=== PATIENT | female | born 1940 | race Caucasian/White ===

== ENCOUNTER → 2018-01-01 10:28 | Outpatient (CLI) | payer MEDICARE, OTHER, SELFPAY ==
--- NOTE | 2018-01-01 10:30 | NM_ITS ---
CLINICAL: 77-year-old female with reported history of carcinoma of the breast and current complaint of left chest wall pain. WHOLE BODY 99m Tc MDP RADIONUCLIDE BONE SCINTIGRAPHY COMPARISON: Previous whole body bone scintigraphy study dated 07/09/2017 FINDINGS: Following the intravenous administration of 25.7 mCi of 99m Tc MDP, whole body bone images reveal: 1. Persistent minimally increased radiopharmaceutical concentration is noted in the left iliac wing. 2. An increase in tracer concentration is presently defined in the mid cervical spine posteriorly on the right, lower cervical spine posteriorly on the left, fourth lumbar vertebra posteriorly on the left, the anterior midline tibial compartment of the right knee, bilateral wrist articulations. 3. The remaining skeletal structures are scintigraphically unremarkable with normal-appearing renal images and urinary bladder activity identified. NM/Bone Scan Whole Body IMPRESSION: 1. The relatively unchanged increase in radiopharmaceutical concentration defined in the left iliac wing remains consistent with osteoblastic turnover attributed to skeletal metastatic disease. 2. Degenerative arthritis is currently expressed in the cervical and lumbar spine, right knee, right and left wrist articulations. 3. Overall compared to the previous whole body bone scintigraphy study dated 07/09/2017, there is no significant interval change. Electronically Signed: Miguel Kirk DO at 10:54 EST Tel , Service support ,
== END ==
PROVIDERS: Family Provider Internal Medicine; PCP Internal Medicine; Visit Provider Internal Medicine Medical Oncology
DX: C50.919 Malignant neoplasm of unspecified site of unspecified female breast (principal); C78.00 Secondary malignant neoplasm of unspecified lung
CPT/HCPCS: 78306

== ENCOUNTER → 2018-01-06 12:41 | Outpatient (CLI) | payer MEDICARE, OTHER, SELFPAY ==
--- NOTE | 2018-01-06 13:01 | CT_ITS ---
STUDY: CT ABDOMEN AND PELVIS WITH CONTRAST REASON FOR EXAM: Female, 77 years old. Breast cancer follow-up. Patient has metastatic breast cancer to bone. RADIATION DOSAGE (If Supplied By Facility): CTDIvol = ( 9.56 ) mGy, DLP = ( 603.95 ) mGycm TECHNIQUE: Transaxial images were obtained from the dome of the diaphragm to the symphysis pubis with oral contrast. 100 ml of Isovue 300 contrast was administered. Sagittal and coronal images were reconstructed. Individualized dose optimization techniques were used for this CT. COMPARISON: CT of the abdomen and pelvis dated July 11, 2017. FINDINGS: The visualized lung bases are unremarkable. The visualized portions of the heart are within normal limits. There is mild prominence of the intrahepatic biliary ducts. This may be the result of previous obstruction. This is unchanged since the previous study. The liver otherwise has a normal appearance. The gallbladder is not visualized, possibly related to cholecystectomy. There is dilatation of the common hepatic and common bile ducts with maximum transverse dimension of approximately 1.3 cm. Normal spleen. There is a small splenule located posterior and caudal to the spleen measuring 1.3 cm in size. There is diffuse atrophy of the pancreas. Normal bilateral adrenal glands. There is prominence of the right renal collecting system, unchanged since the previous CT. There is no evidence for hydroureter or radiopaque ureteral calculus. There are right-sided pelvic calcifications that are thought to be phleboliths. There is a small cyst arising from the upper pole of left kidney measuring approximately 8.1 mm in size. This is unchanged since the previous CT. There is no evidence for left-sided hydronephrosis, hydroureter or radiopaque ureteral calculus. There is abnormal thickening of the ruiz of the gastric antrum which measure up to 1.3 cm in greatest dimension. There is no evidence for dilated bowel, ascites or pneumoperitoneum. Small bowel has a grossly normal appearance. Contrast is visible throughout the colon without obvious abnormality. There is non-visualization of the appendix. Appears to be severe narrowing of the origin of the celiac axis. The abdominal aorta has a generally normal appearance. The superior mesenteric artery has a normal appearance. Normal inferior vena cava. Normal retroperitoneum. Normal urinary bladder. There is absence of the uterus consistent with a prior hysterectomy. Normal abdominal wall. There is a lytic process involving the anterior left-sided iliac bone. This is unchanged since the previous study. The bones appear generally osteopenic. The bones otherwise have generally normal appearance. CT/Abdomen/Pelvis WITH Contrast IMPRESSION: 1. Unchanged appearance to lytic metastasis to left iliac bone. 2. No CT evidence for additional metastasis. Electronically Signed: Karin Estrada MD at 9:50 EST , Service support ,
--- NOTE | 2018-01-06 13:01 | CT_ITS ---
STUDY: CT CHEST WITH CONTRAST REASON FOR EXAM: Female, 77 years old. History of bilateral breast cancer with metastasis to bone. RADIATION DOSAGE (If Supplied By Facility): CTDIvol = ( 9.56 ) mGy, DLP = ( 603.95 ) mGycm TECHNIQUE: Transaxial imaging was performed following intravenous administration of 100ml ml of Isovue 300 contrast material. Multiplanar coronal and sagittal images were reformatted. Individualized dose optimization techniques were used for this CT. COMPARISON: CT of the chest dated July 11, 2017. FINDINGS: The patient has had a left-sided mastectomy. There is hyperinflation of the lungs consistent with chronic obstructive lung disease (COPD). There is a nodular area at the left lung apex. This was present on the previous CT. The nodule measures approximately 3.1 x 1 x 1.2 cm in size. The lungs otherwise appear to be clear. There is no demonstrated pleural abnormality. Normal heart and pericardium. There are enlarged nodes within the aorticopulmonary window measuring approximately 3 x 1.9 x 2.8 cm in size. This is unchanged since the previous CT. Normal hilar regions. There is prominence of the pulmonary hilar arteries without peripheral pulmonary vascular congestion. There is atherosclerotic calcification of the aortic arch with tortuosity and elongation of the aortic arch and descending thoracic aorta. Maximum transverse dimension of ascending thoracic aorta measures approximately 3.7 cm. There are no demonstrated pulmonary emboli. There is demineralization of the thoracic spine. There is no demonstrated abnormality of the visualized upper abdomen. CT/Chest WITH Contrast IMPRESSION: 1. Unchanged appearance to left apical nodule and mediastinal lymphadenopathy since previous CT. 2. No CT evidence for additional metastases. Electronically Signed: Karin Estrada MD at 9:08 EST , Service support ,
[2018-01-06 13:15] LABS: Absolute Lymphocyte Count 0.92 X10^3/ul (0.83-4.51); Absolute Neutrophil Count 2.7 X10^3/uL (2.0-7.7); Basophil# 0.02 X10^3/uL; Basophil% 0.5 % (0-1); Eosinophil# 0.11 X10^3/uL; Eosinophils% 2.6 % (0-5); Hematocrit 35.1 % (37-47); Hemoglobin 11.7 g/dl (12.0-15.0); Lymphocyte # 0.92 X10^3/ul (4.0); Lymphocyte % 21.3 % (19-41); Mean Corp Hgb Conc 33.3 g/gl (32-36); Mean Corpuscular Hgb 30.5 pg (27.0-32.0); Mean Corpuscular Volume 91.4 fL (81-99); Mean Platelet Vol. 10.2 fl (6.2-12.0); Monocyte# 0.51 X10^3/uL; Monocyte% 11.8 % (0-10); Neutrophil # 2.74 X10^3/uL (2.7-7.7); Neutrophil % 63.6 % (47-70); Platelet Count 154 K/mm3 (150-450); RBC Distribution Width CV 13.8 % (11.6-14.6); RBC Distribution Width SD 45.6 fl (35.1-43.9); Red Blood Count 3.84 M/mm3 (4.2-5.4); White Blood Count 4.3 K/mm3 (4.4-11.0)
[2018-01-06 13:16] LABS: POSITIVE COUNT NO; POSITIVE DIFFERENTIAL NO; POSITIVE MORPHOLOGY NO
[2018-01-06 13:38] LABS: ALB/GLOB Ratio 1.1 RATIO (0.9-2.4); AST(SGOT) 22 U/L (15-37); Alanine Aminotransfer ALT/SGPT 23 U/L (13-56); Albumin, Serum 3.8 g/dL (3.2-5.0); Alkaline Phosphatase 63 U/L (45-117); Anion Gap 7 (5-15); BUN 17 mg/dL (7-18); BUN/Creat Ratio 17.9 RATIO (10-20); Calcium,Total 8.7 mg/dL (8.5-10.1); Chloride 102 mmol/L (98-107); Creatinine, Serum 0.95 mg/dL (0.55-1.02); EST Glomerular Filtration Rate 60 mL/min (>60); Est Glom Filt Rate - Afr Amer 73 mL/min (>60); Globulin 3.4 g/dL (2.2-4.2); Glucose 93 mg/dL (74-106); Potassium 4.6 mmol/L (3.5-5.1); Protein, Total 7.2 g/dL (6.4-8.2); Sodium Level 136 mmol/L (136-145)
== END ==
PROVIDERS: Family Provider Internal Medicine; PCP Internal Medicine; Visit Provider Internal Medicine Medical Oncology
DX: C50.919 Malignant neoplasm of unspecified site of unspecified female breast (principal); C78.00 Secondary malignant neoplasm of unspecified lung
CPT/HCPCS: 36415; 71260; 74177; 80053; 85025; Q9967

== ENCOUNTER → 2018-01-13 12:23 | Outpatient (CLI) | payer MEDICARE, OTHER, SELFPAY ==
--- NOTE | 2018-01-13 12:29 | US_ITS ---
STUDY: THYROID ULTRASOUND REASON FOR EXAM: Female, 77 years old. History of thyroid nodules. TECHNIQUE: Ultrasound evaluation of the thyroid was performed with real-time and static franz-scale imaging. COMPARISON: Comparison is made with prior examination dated December 06, 2016. FINDINGS: RIGHT LOBE: The right lobe of the thyroid gland is slightly enlarged and measures 5.0 cm x 1.1 cm x 1.6 cm. There is a homogeneous echotexture. Stable appearance of the 3 hypoechoic solid nodules in the right lobe. The largest is in the midportion and measures 8 mm x 8 mm x 7 mm. This is unchanged. LEFT LOBE: The left lobe of the thyroid gland measures 4.7 cm x 1.4 cm x 1.5 cm. There is a homogeneous echotexture. Once again, 6 nodules are seen. The largest is a hypoechoic solid nodule in the upper pole. This measures 1.5 cm x 1.0 cm x 0.5 cm. ISTHMUS: The isthmus measures 2.0 mm. There is a 6 mm x 2 mm right 3 mm lymph node lateral to the right lobe of the thyroid gland. US/Thyroid IMPRESSION: Multiple bilateral thyroid nodules. There has been essentially no change. Electronically Signed: Severiano Davies MD at 8:05 EST Tel [phone], Service support ,
== END ==
PROVIDERS: Family Provider Internal Medicine; PCP Internal Medicine; Visit Provider Nurse Practitioner Adult Health
DX: E04.2 Nontoxic multinodular goiter (principal)
CPT/HCPCS: 76536

== ENCOUNTER → 2018-04-17 13:52 | Outpatient (CLI) | payer MEDICARE, OTHER, SELFPAY ==
--- NOTE | 2018-04-17 13:52 | DT_ITS ---
This patient was seen during an EMR downtime April 14, 2018 - April 21, 2018. This patient may have a combination of paper and electronic documentation or all paper documentation. All documentation is viewable within the e-chart portion of [facility] for each patient visit.
--- NOTE | 2018-04-17 14:09 | CT_ITS ---
STUDY: CT ABDOMEN AND PELVIS WITHOUT CONTRAST REASON FOR EXAM: Female, 77 years old. Breast cancer follow-up RADIATION DOSAGE (If Supplied By Facility): CTDIvol = ( 7.16 ) mGy, DLP = ( 556.67 ) mGycm TECHNIQUE: Transaxial images were obtained from the lower chest to the upper thighs with oral contrast, and without intravenous contrast. Sagittal and coronal images were reconstructed. Individualized dose optimization techniques were used for this CT. COMPARISON: January 06, 2018 FINDINGS: The lower chest is dictated separately. Prominence of the intrahepatic biliary ducts is stable. The gallbladder is not visualized, likely from prior cholecystectomy. The common bile duct is prominent which is a stable appearance. The spleen is unremarkable. The pancreas is unremarkable. The adrenal glands are unremarkable. The right kidney is unremarkable. There is no dilatation of the collecting system in the right kidney. The left kidney is unremarkable. There is no dilatation of the collecting system in the left kidney. There is a small hiatal hernia. There is mild wall thickening in the stomach. The small bowel is unremarkable. The colon is unremarkable. There is non-visualization of the appendix. The aorta and branch vessels are unremarkable. The IVC is unremarkable. The retroperitoneum is unremarkable. There is no free fluid in the abdomen. The urinary bladder is unremarkable. There is absence of the uterus consistent with a prior hysterectomy. There are no abnormal masses in the adnexal regions. The soft tissues are unremarkable. There are mild degenerative changes in the visualized spine. There is stable trace spondylolisthesis of L3 on L4. There is a stable lesion in the left iliac wing. CT/Abdomen/Pelvis without Cont IMPRESSION: There is a stable lesion in the left iliac wing, possible metastatic lesion. No new bone masses are seen. No masses are seen in the liver, spleen or adrenal glands. There is no significant lymphadenopathy. There is wall thickening in the stomach which is nonspecific. This can be seen with a gastritis. This can be seen with metastatic disease from the breast but is very uncommon. Electronically Signed: Isabella Singh MD at 11:51 EDT Tel Direct: [phone], Service support ,
--- NOTE | 2018-04-17 14:09 | CT_ITS ---
STUDY: CT CHEST WITHOUT CONTRAST REASON FOR EXAM: Female, 77 years old. Breast cancer follow-up RADIATION DOSAGE (If Supplied By Facility): CTDIvol = ( 7.16 ) mGy, DLP = ( 556.67 ) mGycm TECHNIQUE: Transaxial imaging of the chest was performed without intravenous contrast material. Sagittal and coronal reconstructions were performed. Individualized dose optimization techniques were used for this CT. COMPARISON: January 06, 2018 FINDINGS: There is stable scarring in the right apex and periphery of the right upper lobe. There is minimal atelectasis and scarring in the right lung base. There is a stable 3 mm opacity in the anterior segment of the right upper lobe on series 4 image 39. There is stable scarring in the left apex anteriorly extending into the anterior segment of the left upper lobe. There is no demonstrated pleural abnormality. The heart is normal in size. A prevascular lymph node is stable measuring about 2 cm in largest diameter. Smaller lymph nodes are again seen scattered in the mediastinum. The hilar regions are unremarkable allowing for lack of contrast in the vessels. The pulmonary arteries are unremarkable. There are minimal vascular calcifications in the thoracic aorta. The ascending aorta measures up to 4 cm in diameter. There are minimal degenerative changes in the visualized spine. The patient has had prior left mastectomy. The upper abdomen is dictated separately. CT/Chest without Contrast IMPRESSION: There are stable chronic changes in the lungs. There is a stable 3 mm opacity in the anterior segment of the right upper lobe. There are no new lung nodules. There are stable lymph nodes in the mediastinum, with the largest measuring about 2 cm in the prevascular space. The ascending aorta measures up to 4 cm in diameter. Electronically Signed: Isabella Singh MD at 12:00 EDT Tel Direct: [phone], Service support ,
[2018-04-21 20:43] LABS: ALB/GLOB Ratio 1.1 RATIO (0.9-2.4); AST(SGOT) 28 U/L (15-37); Alanine Aminotransfer ALT/SGPT 28 U/L (13-56); Albumin, Serum 3.9 g/dL (3.2-5.0); Alkaline Phosphatase 59 U/L (45-117); BUN 21 mg/dL (7-18); BUN/Creat Ratio 17.8 RATIO (10-20); Calcium,Total 8.7 mg/dL (8.5-10.1); Creatinine, Serum 1.18 mg/dL (0.55-1.02); EST Glomerular Filtration Rate 47 mL/min (>60); Est Glom Filt Rate - Afr Amer 57 mL/min (>60); Globulin 3.5 g/dL (2.2-4.2); Glucose 83 mg/dL (74-106); Protein, Total 7.4 g/dL (6.4-8.2)
[2018-04-21 20:44] LABS: Anion Gap 9 (5-15); Chloride 103 mmol/L (98-107); Potassium 4.7 mmol/L (3.5-5.1); Sodium Level 138 mmol/L (136-145)
[2018-04-21 20:45] LABS: Hemoglobin 11.5 g/dl (12.0-15.0); Red Blood Count 3.81 M/mm3 (4.2-5.4); White Blood Count 4.2 K/mm3 (4.4-11.0)
[2018-04-21 20:46] LABS: Absolute Neutrophil Count 2.8 X10^3/uL (2.0-7.7); Basophil# 0.04 X10^3/uL; Eosinophil# 0.06 X10^3/uL; Eosinophils% 1.4 % (0-5); Hematocrit 34.9 % (37-47); Lymphocyte % 21.5 % (19-41); Mean Corpuscular Hgb 30.2 pg (27.0-32.0); Mean Corpuscular Volume 91.6 fL (81-99); Mean Platelet Vol. 10.6 fl (6.2-12.0); Monocyte# 0.42 X10^3/uL; Neutrophil # 2.76 X10^3/uL (2.7-7.7); Neutrophil % 66.1 % (47-70); POSITIVE COUNT NO; POSITIVE DIFFERENTIAL NO; POSITIVE MORPHOLOGY NO; Platelet Count 154 K/mm3 (150-450); RBC Distribution Width CV 13.6 % (11.6-14.6); RBC Distribution Width SD 45.4 fl (35.1-43.9)
== END ==
PROVIDERS: Family Provider Internal Medicine; PCP Internal Medicine; Visit Provider Internal Medicine Medical Oncology
DX: C50.912 Malignant neoplasm of unspecified site of left female breast (principal); C78.00 Secondary malignant neoplasm of unspecified lung
CPT/HCPCS: 36415; 71250; 74176; 80053; 85025

== ENCOUNTER → 2018-09-16 13:46 | Outpatient (CLI) | payer MEDICARE, OTHER, SELFPAY ==
--- NOTE | 2018-09-16 13:50 | CT_ITS ---
STUDY: CT ABDOMEN AND PELVIS WITH CONTRAST REASON FOR EXAM: Female, 78 years old. Breast cancer with bone metastases RADIATION DOSAGE (If Supplied By Facility): CTDIvol = ( 10.32 ) mGy, DLP = ( 577.28 ) mGycm TECHNIQUE: Transaxial images were obtained from the dome of the diaphragm to the symphysis pubis without oral contrast. 100 ml of Isovue 300 contrast was administered. Sagittal and coronal images were reconstructed. Individualized dose optimization techniques were used for this CT. COMPARISON: None. FINDINGS: The lung bases are clear. There is a left breast prosthesis There is previous cholecystectomy with mildly dilated intrahepatic biliary radicles. There is a unremarkable lumbar duct with a diameter of 1.3 cm. A dilated proximal pancreatic duct is also noted. A lesion in the ampulla of Vater is not demonstrable. The spleen is normal. The pancreas is normal. Both adrenals are normal. Bilateral extrarenal pelves with benign left renal cysts The stomach is normal. There is no bowel distention, acute appendicitis or diverticulitis. No constricting lesions are seen in large bowel. The abdominal wall is intact with no hernias. There is no ascites or any free intraperitoneal air. No indication of epiploic appendagitis The vascular structures in the retroperitoneum are normal. There is no retrocrural, retroperitoneal or mesenteric adenopathy. A stable abnormal density in the left iliac bone. Looks benign. No similar findings are seen in the rest of the skeletal system This has not changed since the last examination of April 17, 2018 The urinary bladder is normal.--The uterus is not seen. There is no inguinal or pelvic adenopathy. There is no inguinal hernia. CT/Abdomen/Pelvis WITH Contrast IMPRESSION: Previous cholecystectomy and mildly dilated intrahepatic biliary radicles and a prominent common bile duct. No lesion however is seen at the level of the ampulla of Vater. A new focal increased density in the left iliac bone. This has not changed since last study. No acute appendicitis or diverticulitis Electronically Signed: Marcos Cobos MD at 7:25 EST Tel , Service support ,
--- NOTE | 2018-09-16 14:08 | CT_ITS ---
STUDY: CT CHEST WITH CONTRAST REASON FOR EXAM: Female, 78 years old. Metastatic breast cancer. RADIATION DOSAGE (If Supplied By Facility): CTDIvol = ( 10.32 ) mGy, DLP = ( 577.28 ) mGycm TECHNIQUE: Transaxial imaging was performed following intravenous administration of 100 ml of Isovue 300 contrast material. Individualized dose optimization techniques were used for this CT. COMPARISON: 01/06/2018, 04/17/2018.. FINDINGS: There has been left mastectomy. Again seen is hyperexpansion of the lungs consistent with COPD. Stable irregular somewhat linear areas of density across the left apex. The findings are most consistent with scarring and have not changed. Stable 3 mm nodule in the anterior left apex, image 26. Stable 3 mm pleural-based nodule in the left upper lobe, axial image 41. Very slight increased pulmonary density in the posterior left lung base not present previously and most likely representing some subsegmental atelectasis. No effusions. Stable left prevascular adenopathy with overall greatest dimension of 3.1 cm anterior to the left main pulmonary artery, on axial image 48. No definite hilar adenopathy on either side. Stable mild to moderate ectasia of the ascending aorta. Mild cardiomegaly. Limited views of the upper abdomen show no gross acute abnormality. Skeletal structures are within normal limits-no evidence for metastatic disease. CT/Chest WITH Contrast IMPRESSION: No significant changes. Irregular linear densities of the left apex suggests scarring. Stable left mediastinal adenopathy. Electronically Signed: Yony Horan MD at 21:38 EST , Service support ,
== END ==
PROVIDERS: Family Provider Internal Medicine; PCP Internal Medicine; Referring Provider Internal Medicine Medical Oncology; Visit Provider Internal Medicine Medical Oncology
DX: C50.912 Malignant neoplasm of unspecified site of left female breast (principal); C79.51 Secondary malignant neoplasm of bone; C78.00 Secondary malignant neoplasm of unspecified lung
CPT/HCPCS: 71260; 74177; Q9967

== ENCOUNTER → 2018-09-18 12:27 | Outpatient (CLI) | payer MEDICARE, OTHER, SELFPAY ==
--- NOTE | 2018-09-18 12:28 | MRI_ITS ---
STUDY: MRI BRAIN WITH AND WITHOUT CONTRAST REASON FOR EXAM: Female, 78 years old. Fatigue. Nausea. History of breast carcinoma, lung carcinoma and bone metastases. TECHNIQUE: Standardized multiplanar fat and water weighted pulse sequences were obtained. 5 ml of Gadavist contrast material was administered intravenously for the contrast portion of the examination. COMPARISON: None. FINDINGS: No restricted diffusion to suspect acute or subacute ischemic infarct. Normal size of the ventricles and extra-axial spaces for the patient's age. Subcortical white matter T2 FLAIR hyperintensity foci in both cerebral hemispheres are chronic white matter ischemic changes. Normal bilateral basal ganglia. Normal thalami. There is no extra-axial fluid accumulation. Normal flow voids within the major intracranial circulation suggesting patency by spin echo criteria. Normal venous enhancement. There is no enhancing intra-axial or extra-axial abnormality. Normal sella turcica, pituitary gland, infundibular stalk, optic chiasm and hypothalamus. Normal tectal plate and pineal gland. Normal midbrain, bill and medulla. Normal cerebellum. Normal basal cisterns. Normal bilateral temporal bones. Normal bilateral internal auditory canals. No demonstrated orbital abnormality, within the constraints of a routine brain study. Normal visualized paranasal sinuses. Normal calvarium and skull base. Normal visualized soft tissue structures. Normal visualized upper cervical spine. MRI/Brain W/WO Contrast IMPRESSION: 1. No MRI evidence of acute or subacute ischemic infarct. 2. No MRI evidence of intracranial metastatic disease. 3. Chronic subcortical white matter ischemic changes in both cerebral hemispheres. Electronically Signed: Luis Duncan MD at 15:28 EST , Service support ,
== END ==
PROVIDERS: Family Provider Internal Medicine; PCP Internal Medicine; Referring Provider Internal Medicine Medical Oncology; Visit Provider Internal Medicine Medical Oncology
DX: C34.90 Malignant neoplasm of unspecified part of unspecified bronchus or lung (principal); C50.912 Malignant neoplasm of unspecified site of left female breast; C79.51 Secondary malignant neoplasm of bone; R11.0 Nausea; R53.83 Other fatigue
CPT/HCPCS: 70553; A9585

== ENCOUNTER → 2018-09-22 09:00 | Outpatient (CLI) | payer MEDICARE, OTHER, SELFPAY ==
--- NOTE | 2018-09-22 09:01 | NM_ITS ---
CLINICAL: 78-year-old female with reported history of carcinoma of the breast. WHOLE BODY 99m Tc MDP RADIONUCLIDE BONE SCINTIGRAPHY COMPARISON: Previous whole body bone scintigraphy study dated 01/01/2018 FINDINGS: Following the intravenous administration of 25.5 mCi of 99m Tc MDP, whole body bone images reveal: 1. Increased radiopharmaceutical concentration is redemonstrated in the mid cervical spine posteriorly on the left and right, fourth lumbar vertebra, right knee, left-right wrist articulations. 2. The remaining skeletal structures are scintigraphically unremarkable with normal-appearing renal images and urinary bladder activity identified. NM/Bone Scan Whole Body IMPRESSION: 1. The increase in radiopharmaceutical concentration persistently defined in the cervical and lumbar spine, right knee and wrist articulations bilaterally is most consistent with degenerative arthritis. 2. There is interim resolution of the previously defined left iliac bone scintigraphic abnormality. 3. Overall compared to the previous whole body bone scintigraphy study dated 01/01/2018, there is current absence of defined viable neoplastic disease. Electronically Signed: Miguel Kirk DO at 21:53 EST Tel , Service support ,
== END ==
PROVIDERS: Family Provider Internal Medicine; PCP Internal Medicine; Referring Provider Internal Medicine Medical Oncology; Visit Provider Internal Medicine Medical Oncology
DX: C34.90 Malignant neoplasm of unspecified part of unspecified bronchus or lung (principal); C50.912 Malignant neoplasm of unspecified site of left female breast; C79.51 Secondary malignant neoplasm of bone; R11.0 Nausea
CPT/HCPCS: 78306

== ENCOUNTER → 2019-02-04 13:37 | Outpatient (CLI) | payer MEDICARE, OTHER, SELFPAY ==
[2018-09-25 14:31] VITALS: BMI 18.3
--- NOTE | 2019-02-04 13:41 | US_ITS ---
STUDY: THYROID ULTRASOUND REASON FOR EXAM: Female, 78 years old. NONTOXIC MULTINODULAR GOITER TECHNIQUE: Ultrasound evaluation of the thyroid was performed with real-time and static franz-scale imaging. COMPARISON: January 13, 2018 FINDINGS: RIGHT LOBE: The right lobe of the thyroid gland measures 4.9 x 1.4 x 1.6 cm cm. There is a heterogeneous echotexture. There are 2 nodular foci associated with the mid and lower pole. One in the midpole measures 0.4 x 0.5 x 0.3 cm noted as generally hypoechoic in the periphery and hyperechoic centrally and the other in the lower pole measuring 0.7 x 0.7 x 0.8 cm noted as relatively homogeneously hyperechoic. These nodules have regular borders and there is perinodular vascularization.. LEFT LOBE: The left lobe of the thyroid gland measures 5 x 1.7 x 1.5 cm cm. There is a heterogeneous echotexture. There are 5 lesions seen noted from superior to inferior upper to lower pole with the following measurements there is a hypoechoic solid nodule in the upper pole measuring 1.3 x 1 x 0.6 cm. There is another lesion in the posterior mid to upper pole measuring 0.8 x 0.6 x 0.7 cm noted is slightly hyperechoic and solid. There is a lesion is seen laterally in the midpole measuring approximately 0.9 x 0.7 x 0.8 cm generally hyperechoic. Fourth lesion noted medially in the mid to lower thyroid gland measuring approximately 0.5 x 0.5 x 0.5 cm. It likely has calcification and is noted is hyperechoic with shadowing. This lesion is seen as complex with areas of shadowing calcification measuring approximately 1.3 x 1.3 x 0.8 cm. Margins do appear regular . Vascularization is predominantly seen. Nodular in association with these lesions. ISTHMUS: The isthmus measures 2 mm . The regional lymph nodes are normal. US/Thyroid IMPRESSION: Multinodular thyroid gland as described. Given differences in technique and attention to perceived nodular margins, the appearance iswithout significant change Electronically Signed: Darby Nuno MD at 14:45 EDT , Service support ,
== END ==
PROVIDERS: Family Provider Internal Medicine; PCP Internal Medicine; Referring Provider Nurse Practitioner Adult Health; Visit Provider Nurse Practitioner Adult Health
DX: E04.2 Nontoxic multinodular goiter (principal)
CPT/HCPCS: 76536

== ENCOUNTER → 2019-03-25 09:27 | Outpatient (CLI) | payer MEDICARE, OTHER, SELFPAY ==
[2019-03-19 13:38] VITALS: BMI 18.6
--- NOTE | 2019-03-25 09:29 | NM_ITS ---
CLINICAL: 78-year-old female with reported history of carcinoma of the breast. WHOLE BODY 99m Tc MDP RADIONUCLIDE BONE SCINTIGRAPHY COMPARISON: Whole body bone scintigraphy study dated 09/22/2018 FINDINGS: Following the intravenous administration of 25.5 mCi of 99m Tc MDP, whole body bone images reveal: 1. Increased radiopharmaceutical concentration is identified in the upper cervical spine posteriorly on the right, mid cervical spine posteriorly on the left-right, right and left wrist articulations, bilateral forefoot. 2. The remaining skeletal structures are scintigraphically unremarkable with normal-appearing renal images and urinary bladder activity identified. NM/Bone Scan Whole Body IMPRESSION: 1. The increase in radiopharmaceutical concentration defined in the cervical spine, bilateral wrists, right-left forefoot is commensurate with degenerative arthritis. 2. Overall compared to the previous whole body bone scintigraphy study dated 09/22/2018, there is no significant interval change. No current typical scintigraphic evidence of skeletal metastatic disease is defined on the current examination. Electronically Signed: Miguel Kirk DO at 11:16 EDT Tel , Service support ,
== END ==
PROVIDERS: Family Provider Internal Medicine; PCP Internal Medicine; Referring Provider Internal Medicine Medical Oncology; Visit Provider Internal Medicine Medical Oncology
DX: C50.912 Malignant neoplasm of unspecified site of left female breast (principal); C78.00 Secondary malignant neoplasm of unspecified lung
CPT/HCPCS: 78306

== ENCOUNTER → 2019-07-10 13:48 | Outpatient (CLI) | payer MEDICARE, OTHER, SELFPAY ==
[2019-07-01 12:07] VITALS: BMI 18.5
--- NOTE | 2019-07-10 13:50 | CT_ITS ---
STUDY: CT CHEST WITH CONTRAST REASON FOR EXAM: Female, 78 years old. Chronic shortness of breath history bilateral breast cancer RADIATION DOSAGE (If Supplied By Facility): CTDIvol = ( 12.05 ) mGy, DLP = ( 161.84 ) mGycm TECHNIQUE: Transaxial imaging was performed following intravenous administration of 100 IV Isovue 300. Individualized dose optimization techniques were used for this CT. COMPARISON: September 16, 2018 FINDINGS: There is interstitial thickening in the left lower lobe. There is also scarring in the left upper lobe. Tiny apical density measuring 3 mm in size There is no demonstrated pleural abnormality. Normal heart and pericardium. Superior mediastinal adenopathy within the prevascular space extending to the left suprahilar region measuring approximately 3.2 x 3 cm. Normal hilar regions. Normal enhanced pulmonary arteries. Atherosclerotic changes of the aorta without evidence for aneurysm. Postop changes status post left mastectomy Dorsal spine demonstrates mild spondylosis. There is no demonstrated abnormality of the visualized upper abdomen. The adenopathy has increased slightly in size since prior study. PET scan would be helpful for further assessment CT/Chest WITH Contrast IMPRESSION: Chronic interstitial changes in the left upper and lower lobes. Postop change status post left mastectomy Left suprahilar and superior mediastinal adenopathy which has increased slightly in size since prior study. PET scan recommended for further evaluation Electronically Signed: Armin Chauhan MD at 17:24 EDT , Service support ,
== END ==
PROVIDERS: Family Provider Internal Medicine; PCP Internal Medicine; Referring Provider Nurse Practitioner Family; Visit Provider Nurse Practitioner Family
DX: R06.02 Shortness of breath (principal)
CPT/HCPCS: 71260; Q9967

== ENCOUNTER → 2020-01-07 09:03 | Outpatient (CLI) | payer MEDICARE, OTHER, SELFPAY ==
[2020-01-04 09:55] VITALS: BMI 18.1
--- NOTE | 2020-01-07 09:04 | NM_ITS ---
CLINICAL: 79-year-old female with reported history of carcinoma of the breast. WHOLE BODY 99m Tc MDP RADIONUCLIDE BONE SCINTIGRAPHY COMPARISON: Previous whole body bone scintigraphy study dated 03/25/2019 FINDINGS: Following the intravenous administration of 25.7 mCi of 99m Tc MDP, whole body bone images reveal: 1. Increased radiopharmaceutical concentration is redefined in the mid cervical spine posteriorly on the left and right, bilateral wrist articulations, the anterior midline tibial compartment of the right knee. 2. The remaining skeletal structures are scintigraphically unremarkable with normal-appearing renal images and urinary bladder activity identified. NM/Bone Scan Whole Body IMPRESSION: 1. Increased tracer distribution currently visualized in the cervical spine, right knee right and left wrist articulations is commensurate with degenerative arthritis. 2. Overall compared to the previous whole body bone scintigraphy study dated 03/25/2019, there is no significant interval change. No current typical scintigraphic evidence of diffuse axial skeletal metastatic disease is apparent on the present examination. Electronically Signed: Miguel Kirk DO at 10:56 EST Tel , Service support ,
== END ==
PROVIDERS: PCP Internal Medicine; Referring Provider Nurse Practitioner Family; Visit Provider Nurse Practitioner Family
DX: C79.51 Secondary malignant neoplasm of bone (principal)
CPT/HCPCS: 78306

== ENCOUNTER → 2020-01-11 14:15 | Outpatient (CLI) | payer MEDICARE, OTHER, SELFPAY ==
[2020-01-04 09:55] VITALS: BMI 18.1
--- NOTE | 2020-01-11 14:16 | CT_ITS ---
STUDY: CT CHEST/THORAX WITH CONTRAST REASON FOR EXAM: Female, 79 years old. Left shoulder pain, back pain. Hx metastatic breast cancer, bilateral mastectomy, radiation to hip, chemotherapy. Prior cholecystectomy, hypertension, lung nodule removed. RADIATION DOSAGE (If Supplied By Facility): CTDIvol = ( 7.62 ) mGy, DLP = ( 531.25 ) mGycm TECHNIQUE: Transaxial imaging was performed following intravenous administration of IV 75mL Isovue-300. Multiplanar coronal and sagittal images were reformatted. Individualized dose optimization techniques were used for this CT. COMPARISON: CT chest with contrast July 10, 2019; whole body bone scan January 07, 2020 FINDINGS: There is a stable rim enhancing 1 cm nodule in the inferomedial left lobe of the thyroid gland and, just above it, a stable, rounded coarse 4 mm calcification. An elongated 1.4 x 0.6 x 1.05 cm rim-enhancing lesion in the superior margin of the left lobe of the thyroid is not fully included in the [id number]. Stable mild elevation of the posterior left diaphragm. There is stable irregular scarring along radiopaque suture line in the anterior apical left upper lobe. There is no demonstrated pleural abnormality. The heart is enlarged, although the appearance is likely augmented by a pectus excavatum deformity. Normal pericardium. A mass density arising out of the left margin of the aorta pulmonary window is 3.65 x 3.15 x 3.7 cm. Now seen anterior to this (series 2 image 37, series 601 image 76) is a 1 cm left anterior mediastinal lymph node, worrisome for metastatic disease. Normal hilar regions. Normal enhanced pulmonary arteries. There is some calcification in the anterior aortic valve annulus. The mid ascending aorta is 3.6 x 3.5 cm. The posterior thoracic aortic arch at the level of the calcified ligamentum arteriosum is 3.1 x 3.15 cm. The mid descending thoracic aorta is 2.25 x 2.3 cm. There is mild atherosclerotic plaquing with minor calcification of the descending thoracic aorta. There is some demineralization of the osseous structures. No discrete osseous lesion or acute fracture. Prior left mastectomy again noted. There is mild intrahepatic biliary ductal ectasia. Scanning does not go beyond the liver hilum, so a potential source of extra hepatic biliary disease is not included in the [id number]. CT/Chest WITH Contrast IMPRESSION: 1. Prior left mastectomy. 2. Stable scarring along a radiopaque suture line in the anterior left upper lobe. 3. Mild increased size of lobulated mass density arising from the left margin of the air component window. Anterior to this is a new 1 cm left anterior mediastinal lymph node. Both sites are worrisome for metastatic adenopathy. Correlation with PET scan may be useful. 4. There is some demineralization of the osseous structures. No discrete osseous lesion or fracture, however. 5. The enlarged appearance of the cardiac silhouette is likely augmented by pectus excavatum deformity. 6. Stable rim-enhancing nodules in the upper and lower poles of the left thyroid lobe. These are presumably components of the multinodular goiter identified on thyroid ultrasound February 04, 2019. 7. Stable mild intrahepatic biliary ductal ectasia. Electronically Signed: Bud Cohen MD at 15:38 EST , Service support ,
--- NOTE | 2020-01-11 14:16 | CT_ITS ---
STUDY: CT ABDOMEN AND PELVIS WITH CONTRAST REASON FOR EXAM: Female, 79 years old. Left shoulder and back pain, hx metastatic breast cancer, chemotherapy, radiation to hip, hypertension, cholecystectomy, LATIA/BSO. Prior bilateral mastectomy. RADIATION DOSAGE (If Supplied By Facility): CTDIvol = ( 7.62 ) mGy, DLP = ( 531.25 ) mGycm TECHNIQUE: Transaxial images were obtained from the dome of the diaphragm to the symphysis pubis without oral contrast. IV 75mL Isovue-300 was administered. Sagittal and coronal images were reconstructed. Individualized dose optimization techniques were used for this CT. COMPARISON: September 16, 2018 CT scan abdomen and pelvis FINDINGS: The visualized lung bases are unremarkable. There is mild cardiac enlargement. There is a left mastectomy asymmetry of the breast tissue. The liver is homogeneous. There is mild intra and extrahepatic ductal dilatation with a somewhat low lying tortuous appearance of the pancreatic ducts within the pancreas. There is a focus of fat surrounding the splenic confluence similar to the prior studies. There is non-visualization of the gallbladder, which may be secondary to either contraction or a prior cholecystectomy. Normal spleen. As mentioned above there is fatty infiltration around the splenic confluence which is in lump. This is underlying the body of the pancreas. Normal bilateral adrenal glands. There is mild right pelviectasis. This is similar to the prior study. There is mild left pelviectasis this is also unchanged since prior study. There is a minimal thick-walled appearance of the distal stomach image #38 For peristalsis. There mildly distended loops of small bowel. There is moderate stool in the colon. On image #71 axial views allowing for peristalsis is a suggestion of possible wall thickening of the colon There is bowel tortuosity. There is non-visualization of the appendix. The suprarenal abdominal aorta measures 1.9 x 2.4 cm. Normal inferior vena cava. Normal retroperitoneum. The bladder is distended. There is absence of the uterus consistent with a prior hysterectomy. Normal abdominal wall. The bones are mildly osteopenic. There is mild spondylosis. There is facet arthropathy. At L3-L4 L4-L5 there is a broad disc bulge disc space narrowing facet arthropathy with mild neural foramina narrowing no significant central stenosis. CT/Abdomen/Pelvis W IV Cont ONLY IMPRESSION: Mild stable bilateral renal pelviectasis. Persistent mild intra and extra hepatic duct dilatation stable since prior study Moderate constipation. Question peristalsis versus focal thickening of the ascending colon over a short segment which could potentially represent peristalsis versus possible atypia recommend follow-up colonoscopy. Minimal focal thickening of the distal stomach images numbered 48 axial views, could consider follow-up endoscopy or upper GI small bowel follow-through if appropriate. Status post hysterectomy. Degenerative change of the thoracolumbar spine. The bones are osteopenic without definitive focal lytic or sclerotic lesion. Electronically Signed: Manjula Verdin MD at 18:01 EST Tel , Service support ,
== END ==
PROVIDERS: PCP Internal Medicine; Referring Provider Nurse Practitioner Family; Visit Provider Nurse Practitioner Family
DX: C50.919 Malignant neoplasm of unspecified site of unspecified female breast (principal); C79.51 Secondary malignant neoplasm of bone; R94.5 Abnormal results of liver function studies; C78.00 Secondary malignant neoplasm of unspecified lung; R49.0 Dysphonia
CPT/HCPCS: 71260; 74177; Q9967; A4216

== ENCOUNTER → 2020-01-26 | Outpatient (CLI) | payer MEDICARE, OTHER, SELFPAY ==
[2020-01-21 13:13] VITALS: BMI 18.1
[2020-01-26] VITALS (10 sets, daily range): BP systolic 135–195; BP diastolic 57–76; PULSE 64–75; RESP 11–20; TEMP 36.6; O2SAT 95–100; BMI 18.1
--- NOTE | 2020-01-26 | IMM_PTH ---
PATIENT: ALEXEY SIDDIQUI LOC: CT U#:[id number] AGE/SX: 79/F ROOM: RE01/26/[address]: Dr. Albert Sy MD : 1940 BED: DIS: 01/26/2020 SPEC #: [id number] RECD: 01/27/20 14:47 STATUS: NEMESIO REQ #: [id number] LUIS: 01/26/20 00:[address]: Albert Sy DEPT: IMMUNOHISTOCHEMISTRY RECD BY: Cinthia Chu ENTERED: 01/27/20 14:49 SP TYPE: IMMUNO OTHR DR: Dr. Maycol Stevens MD Tissues: Lung, NOS Procedures: RCC (add) NAPSIN A (add) CK20 (add) CK5-6 (add) CK7 (add) CK8 (add) HEP PAR (add) HER2 [place] (add) MAMM (add) MI (add) TTF1 (add) GATA3 (add) P40 (add) ER (initial) PHYSICIAN & INSTITUTION [address] [address] SPECIMEN INFORMATION: Tissue Source: Left lung mass Clinical Info: Left lung mass Specimen Number: [id number] CPT code: 32840, 54057 x13 METHODOLOGY: Deparaffinized sections of prefer/formalin-fixed tissue or PAP/DQ stained slides are incubated with monoclonal/polyclonal antibodies/oligonucleotide probes. Localization is made via biotin free immunoperoxidase method. Appropriate controls are performed and reacted as expected. Results on target cell population are indicated in the following table: RESULTS: ANTIBODY / CLONE RESULT ER (6F11) positive MI (1E2) negative Her-2neu (CB11) negative (0) Mammaglobin (31A5) negative GATA3 (L50-823) positive CK7 (OV-TL12/30) positive CK8 (83epofW32) positive CK20 (KS20.8) negative TTF-1 (8G7G3/1) negative Napsin A (Rabbit Polyclonal) negative HepPar (OCh1E5) negative RCC (PN-15) negative CK5-6 (D5 & 1684) positive, rare cells P40 (BC28) positive, rare cells These tests were developed and their performance characteristics determined by [facility]. They may not have been cleared or approved by the U.S. Food and Drug Administration. The FDA has determined that such clearance or approval is not necessary. The above immunohistochemical/dualISH markers are ordered and reviewed by the Pathologist. INTERPRETATION: Left lung mass, CT-guided core biopsy: Metastatic non-small cell carcinoma consistent with breast primary. SJ:zoila 01/28/20 Case has been reviewed in consultation with Dr. Montemayor who concurs with the above diagnosis. IDC:AM
--- NOTE | 2020-01-26 08:51 | CT_ITS ---
PROCEDURE: CT GUIDED CORE NEEDLE BIOPSY OF A left upper lobe LUNG LESION INDICATION: Female, 79 years old. LT LUNG BIOPSY. Hx of breast cancer with bone mets. PHYSICIAN: Dr. Davies CONSENT: Written informed consent was obtained having explained the risks, benefits and alternatives in detail with the patient who accepted the risks and agreed to proceed. Laboratory review and clinical assessment was performed. CONSCIOUS SEDATION PROTOCOL: The Drugs used were: 2 mg Versed, IV., and 50 mcg Fentanyl, IV. The sedation time was: 15 minutes. Conscious sedation was started at 10:18 AM and terminated at 10:33 AM. The conscious sedation protocol was independently monitored. RADIATION DOSAGE (If Supplied By Facility): CTDIvol = ( 14 ) mGy, DLP = ( 258.75 ) mGycm Individualized dose optimization techniques were used for this CT. TECHNIQUE: The patient was placed in the supine position. A noncontrast CT was performed to localize the lesion in the medial left upper lobe . The skin surface was prepped and draped in a sterile fashion. 1% lidocaine was used for local anesthesia. Using CT guidance, a 20-gauge coaxial biopsy device was advanced to the periphery of the lesion. A total of 5 core specimens were obtained. The specimens were placed in a formalin solution. A post procedure CT demonstrated no adverse sequelae or pneumothorax. The patient tolerated the procedure well without adverse event. A negative biopsy does not exclude malignancy. Further imaging or clinical followup based on patient condition and degree of clinical suspicion for malignancy. Suggest rebiopsy, if biopsy results do not match with clinical scenario. CT/Biopsy/Inj or Needle Placement IMPRESSION: 1. CT directed core needle biopsy of the nodule in the medial aspect of the left upper lobe using CT image guidance with image documentation as described. Pathology results are pending. 2. Conscious Sedation protocol utilized with independent monitoring. Electronically Signed: Severiano Davies, at 11:10 EDT , Service support ,
[2020-01-26 09:14] LABS: Absolute Lymphocyte Count 0.91 X10^3/uL (0.83-4.51); Absolute Neutrophil Count 3.7 X10^3/uL (2.0-7.7); Basophil# 0.04 X10^3/uL; Basophil% 0.7 % (0-1); Eosinophils% 1.9 % (0-5); Hematocrit 33.3 % (37-47); Hemoglobin 10.9 g/dL (12.0-15.0); Lymphocyte # 0.91 X10^3/ul (4.0); Lymphocyte % 16.9 % (19-41); Mean Corp Hgb Conc 32.7 g/dL (32-36); Mean Corpuscular Hgb 30.3 pg (27.0-32.0); Mean Corpuscular Volume 92.5 fL (81-99); Mean Platelet Vol. 10.3 fl (6.2-12.0); Monocyte# 0.67 X10^3/uL; Monocyte% 12.4 % (0-10); NRBC Flagged by Analyzer 0 % (0-5); Neutrophil # 3.65 X10^3/uL (2.7-7.7); Neutrophil % 67.7 % (47-70); Platelet Count 163 K/mm3 (150-450); RBC Distribution Width CV 13.2 % (11.6-14.6); RBC Distribution Width SD 44.8 fl (35.1-43.9); White Blood Count 5.4 K/mm3 (4.4-11.0)
[2020-01-26 09:30] LABS: Prothrombin Time (Protime)PT. 12.9 SECONDS (11.7-14.9)
[2020-01-26 09:31] LABS: Partial Thromboplast Time 31.2 Seconds (24.1-36.2)
[2020-01-26] MEDS: fentaNYL 100 MCG/2 ML Ampul IV (10:17)
[2020-01-26] MEDS: Midazolam 2 MG/2 ML Syringe IV (10:17)
--- NOTE | 2020-01-26 10:35 | RAD_ITS ---
STUDY: X-RAY CHEST REASON FOR EXAM: Female, 79 years old. POST LUNG BIOPSY TECHNIQUE: AP inspiration and expiration views. COMPARISON: None. FINDINGS: Immediate post left lung biopsy radiographs. No evidence of pneumothorax. RAD/Chest Insp/Exp 2 View IMPRESSION: No evidence of pneumothorax on the immediate post left lung biopsy radiographs. Electronically Signed: Severiano Davies, at 15:15 EDT , Service support ,
--- NOTE | 2020-01-26 10:35 | ASPIGT_PTH ---
PATIENT: ALXEEY SIDDIQUI LOC: CT U#:[id number] AGE/SX: 79/F ROOM: RE01/26/[address]: Dr. Albert Sy MD : 1940 BED: DIS: 01/26/2020 SPEC #: [id number] RECD: 01/26/20 10:47 STATUS: NEMESIO REQ #: [id number] LUIS: 01/26/20 10:[address]: Albert Sy DEPT: SURGICAL PATHOLOGY RECD BY: Taz Carpenter Elvie ENTERED: 01/26/20 10:48 SP TYPE: ASP RAD OTHR DR: Dr. Maycol Stevens MD Tissues: Lung, NOS Procedures: FNA Specimen Adequacy Special Stain Group II Surgery Specimen Level IV Imprint (control) HEADER OPERATION: Left lung mass CT-guided core biopsy PRE-OP DIAGNOSIS: Lung mass TISSUE SUBMITTED: Lung mass MICROSCOPIC DIAGNOSIS Left lung mass, CT-guided core biopsy: Metastatic non-small cell carcinoma with focal area of necrosis, consistent with breast primary. See comment. SJ:zoila 01/27/20 COMMENT The specimen is evaluated at the time of biopsy by Dr. Perea. Immediate Evaluation = Malignant cells present derived from non-small cell carcinoma. Immunohistochemistry ([id number]) supports the above diagnosis. As per patient's EMR, the patient has remote history of breast carcinoma. Case has been reviewed in consultation with Dr. Montemayor who concurs with the above diagnosis. IDC:AM MICROSCOPIC DESCRIPTION Slides are reviewed. GROSS DESCRIPTION Received in fixative is one container labeled with the patient's name and designated left lung. The specimen consists of multiple minute fragments of pelayo soft tissue that in aggregate measure 0.5 x 0.3 x <0.1 cm. One touch imprint is prepared at the time of core biopsy. The specimen is totally submitted in one cassette. / AM:zoila 01/26/20 TC:0 CPT: 56076, 85084
--- NOTE | 2020-01-26 12:45 | RAD_ITS ---
STUDY: X-RAY CHEST REASON FOR EXAM: Female, 79 years old. POST BIOPSY 2 HRS TECHNIQUE: Inspiratory and excretory views COMPARISON: Earlier today FINDINGS: The lungs are clear and expanded. Elevated left hemidiaphragm which is unchanged. Suture line in the upper left lung likely related to prior lung resection. No pneumothorax after CT-guided left lung biopsy. Normal size heart. No change in the left hilar mass which was biopsied earlier today. Normal visualized pulmonary arteries. Normal visualized aortic arch and descending thoracic aorta. Normal visualized thoracic spine. Normal visualized ribs, clavicles, and shoulders. There is no demonstrated abnormality of the visualized soft tissue structures of the upper abdomen. RAD/Chest Insp/Exp 2 View IMPRESSION: No pneumothorax after CT-guided left lung biopsy. Electronically Signed: Miguel Noland MD at 13:04 EDT Tel , Service support ,
== END | disposition home or self-care (01) ==
LOC: CT 08:51
PROVIDERS: PCP Internal Medicine; Referring Provider Internal Medicine Medical Oncology; Visit Provider Internal Medicine Medical Oncology
DX: C50.919 Malignant neoplasm of unspecified site of unspecified female breast (principal); C79.51 Secondary malignant neoplasm of bone; C78.00 Secondary malignant neoplasm of unspecified lung; R16.0 Hepatomegaly, not elsewhere classified; Z01.818 Encounter for other preprocedural examination; R89.7 Abnormal histological findings in specimens from other organs, systems and tissues
CPT/HCPCS: 32405; 77012; 36415; 71046; 85025; 85610; 85730; 88172; 88305; 88313; 88341; 88342; 99156; J7040; A4216

== ENCOUNTER → 2020-02-12 12:15 | Outpatient (CLI) | payer MEDICARE, OTHER, SELFPAY ==
[2020-02-04 15:05] VITALS: BMI 17.9
--- NOTE | 2020-02-12 12:17 | MRI_ITS ---
STUDY: MRI ABDOMEN WITH AND WITHOUT CONTRAST REASON FOR EXAM: Female, 79 years old. h/o breast ca, new liver lesions TECHNIQUE: Standardized fat and water weighted pulse sequences were obtained in all 3 orthogonal planes post contrast administration. 10ml Dotarem via IV was administered for the contrast portion of the examination. COMPARISON: CT 01/11/2020, PET CT 01/18/2020 FINDINGS: The visualized lung bases are unremarkable. The visualized portions of the heart are within normal limits. Elevated left hemidiaphragm. There are multiple T1 hypointense and T2 hyperintense lesions within the liver which demonstrate restricted diffusion which demonstrate decreased contrast enhancement consistent with metastatic disease. The largest lesion is in the posterior aspect of the lateral segment left lobe liver corresponds to the area of hypermetabolism seen on PET/CT and measures 2 cm in diameter. Another lesion in the anterior aspect lateral segment left lobe liver measures 1 cm in diameter. A lesion in dome of the liver measures 0.8 cm in diameter. Another 0.8 cm lesion is seen within the medial segment left lobe liver adjacent to the middle hepatic vein. Another 0.8 cm lesion is seen in the anterior segment the right lobe of the liver. A 1.0 cm lesion is seen in the posterior segment the right lobe of the liver. There is non-visualization of the gallbladder, which may be secondary to either contraction or a prior cholecystectomy. Normal spleen. Normal pancreas. Normal bilateral adrenal glands. Normal right kidney. Normal left kidney. Normal visualized stomach. Normal small intestine. Normal colon. There is non-visualization of the appendix. Normal abdominal aorta. Normal inferior vena cava. Normal retroperitoneum. Normal abdominal wall. Normal osseous structures. MRI/MRI Abd WITH and W/O Contrast IMPRESSION: Interval development of hepatic metastases as described above. Electronically Signed: Miguel Noland MD at 15:09 EDT Tel , Service support ,
[2020-02-12 13:00] LABS: CREATININE FINGERSTICK 0.8 mg/dL (0.55-1.02); EGFR FINGERSTICK > 60.0000 mL/min (>60)
== END ==
PROVIDERS: PCP Internal Medicine; Referring Provider Internal Medicine Medical Oncology; Visit Provider Internal Medicine Medical Oncology
DX: K76.9 Liver disease, unspecified (principal); C50.919 Malignant neoplasm of unspecified site of unspecified female breast; C78.00 Secondary malignant neoplasm of unspecified lung; C79.51 Secondary malignant neoplasm of bone
CPT/HCPCS: 74183; A9575; A4216